=== PATIENT | male | born 1945 | race Caucasian/White ===

== ENCOUNTER → 2018-01-18 12:14 | Outpatient (CLI) | payer MEDICARE, SELFPAY ==
[2018-01-18 12:53] LABS: Bacteria 0 SEEN /hpf (None Seen); Mucous, Urine 0 SEEN /hpf (<or=2+); Red Blood Cells-Urine 0 SEEN /hpf (0-5); Squamous Epithelial Cells - UA 0 SEEN /hpf (0-5); White Blood Cells 0 SEEN /hpf (0-5)
[2018-01-18 12:59] LABS: Color, Urine Yellow (Yellow); Glucose, Dipstick Normal (Normal); Ketone-Dipstick Negative (Negative); Leukocyte Esterase-Dipstick Negative /ul (Negative); Nitrite-Dipstick Negative (Negative); Occult Blood-Urine Negative /ul (Negative); Protein-Dipstick Negative (Negative); Urine Bilirubin Dipstick Negative (Negative); Urine Clarity Clear (Clear); Urine Urobilinogen Normal (Normal)
[2018-01-18 13:19] LABS: AST(SGOT) 14 U/L (15-37); Alanine Aminotransfer ALT/SGPT 28 U/L (16-61); Albumin, Serum 3.5 g/dL (3.2-5.0); Alkaline Phosphatase 78 U/L (45-117); Anion Gap 7 (5-15); BUN 19 mg/dL (7-18); BUN/Creat Ratio 20.1 RATIO (10-20); Calcium,Total 8.7 mg/dL (8.5-10.1); Chloride 106 mmol/L (98-107); Cholesterol 168 mg/dL (200); Creatinine, Serum 0.95 mg/dL (0.70-1.30); EST Glomerular Filtration Rate 83 mL/min (>60); Est Glom Filt Rate - Afr Amer 101 mL/min (>60); Globulin 3.5 g/dL (2.2-4.2); Glucose 81 mg/dL (74-106); Hemoglobin A1c 5.9 % (4.2-6.3); High Density Lipoprotein 47 mg/dL; PSA,Total- Diagnostic 1.62 ng/mL (0.0-4.0); Sodium Level 142 mmol/L (136-145); Triglycerides 103 mg/dL; Very Low Density Lipoprotein 21 mg/dL (5-40)
--- OUTSIDE RECORDS SUMMARY | 2018-03-06 15:44 | XMS RPT_ITS ---
:1945 Author Organization OHIP Care Team Providers Name Role Phone OLLIE RAMIREZ Referring Unavailable EMA EARL (MADELINE) Attending Unavailable Ollie Ramirez Attending Unavailable Ollie Ramirez Referring Unavailable PROBLEMS PROBLEMS DATE TYPE CONDITION / CODE ATTENDING STATUS SOURCE 01/19/2018 Unknown E78.2 - Mixed Ollie Ramirez Active [facility] / [facility] E78.2(ICD-10) Hospital Repository 01/19/2018 Unknown Z79.899 - Other long Ollie Ramirez Active [facility] term (current) drug Community therapy / Hospital Z79.899(ICD-10) Repository 12/20/2017 Active Disorder of NA Active [place] [facility], Clinic Main unspecified / [place] N42.9(ICD-10) Repository 11/28/2016 Active Impaired fasting NA Active [place] glucose / Clinic Main R73.01(ICD-10) [place] Repository 07/21/2015 Active Mixed hyperlipidemia NA Active [facility] / E78.2(ICD-10) Clinic Main [place] Repository 01/18/2018 Active 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 Patient with hx of HTN Does not check his bp at home. Denies any headaches or vision changes Denies chest pain or significant shortness of breath. He is concerned with today's bp being a little higher Admits that he adds salt to everything and wants to work on this but doesn't see this change overnight. Last 4 Encounter BP Readings: Date: BP: 01/18/2018 132/68 11/25/2016 132/80 10/07/2016 142/76 08/24/2016 152/78 Past medical history, appointments, medications, allergies reviewed. Previous Medical History PAST MEDICAL HISTORY Diagnosis Date - Allergic rhinitis, cause unspecified 04/10/2008 - Benign neoplasm of colon - Erectile dysfunction 05/14/2014 - Hyperlipidemia 05/14/2014 - Hypertrophy of prostate without urinary obstruction and other lower urinary tract symptoms (LUTS) 01/20/2006 - Internal hemorrhoids without mention of complication - Tricuspid regurgitation 04/09/2011 Previous Surgical History PAST SURGICAL HISTORY Procedure Laterality Date - 2D ECHO (EXEP) 03/25/2014 EF=65%, Mild LVH and diastolic dysfunction. no valve abnormalities. - COLONOSCOPY W/BX 03/24/09 repeat 10 yrs - PROCEDURE 04/2007 right foot great toe nail removed - REMOVAL OF TONSILS,<12 Y/O Tonsillectomy - STRESS TEST 05/30/2014 NL - VASECTOMY 1998 Family History FAMILY HISTORY Problem Relation Age of Onset - Coronary Artery Disease Paternal Uncle 60's - Coronary Artery Disease Father 66 - Cancer Brother unsure of the type, passed from this. - Diabetes Maternal Uncle - Seizures Son Patient Allergies ALLERGIES No Known Allergies Current Medications Current Outpatient Prescriptions on File Prior to Visit: ASPIRIN 81 MG TAB Take one(1) tablet daily. fluticasone (FLONASE) 50 mcg/actuation nasal spray USE 2 SPRAYS IN EACH NOSTRIL ONCE DAILY. lisinopril (ZESTRIL, PRINIVIL) 5 mg tablet TAKE 1 TABLET BY MOUTH ONCE DAILY. sildenafil (VIAGRA) 50 mg tablet Take one hour before sex simvastatin (ZOCOR) 20 mg tablet TAKE 1 TABLET BY MOUTH ONCE DAILY. No current facility-administered medications on file prior to visit. Social History Social History Marital status: Spouse name: Years of education: 12+ Number of children: 2 Occupational History Occupation Employer Comment material specialis* [employer] Social History Main Topics Smoking status: Former Smoker Packs/day: 1.00 Years: 15.00 Types: Cigarettes Smokeless tobacco: Never Used Comment: quit in 1979 Alcohol use: Yes Comment: rarely Drug use: No Other Topics Concern Service Yes Blood Transfusions No Caffeine Concern No Occupational Exposure No Hobby Hazards No Sleep Concern No Stress Concern No Weight Concern Yes Special Diet No Back Care No Exercise Yes Bike Helmet No Seat Belt Yes Self-Exams No Review of Symptoms REVIEW OF SYSTEMS GENERAL: No weight loss, malaise or fevers NECK: Negative for lumps, goiter, pain and significant neck swelling RESPIRATORY: Negative for cough, hemoptysis, wheezing, COPD, dyspnea or shortness of breath CARDIOVASCULAR: Negative for chest pain, leg swelling, CHF or palpitations EXAM: BP 140/76 Pulse 64 Resp 12 Wt 93.9 kg (207 lb) BMI 30.13 kg/m? BP 132/68 Pulse 64 Resp 12 Wt 93.9 kg (207 lb) BMI 30.13 kg/m? General Appearance: Well appearing, alert, in no acute distress, well-hydrated, well nourished.. Neck: Supple, no adenopathy; thyroid symmetric, normal size, no bruits. Lungs: lungs clear to auscultation. No wheezing, rhonchi, rales. Heart: RRR + murmur Extremities: No deformities, edema, Peripheral Pulses: Normal. Health Maintenance List ANNUAL PCP TEAM CHRONIC DISEASE VISIT due on 1964 BP CONTROLLED (<130/80) due on 1964 DTAP,TDAP,TD(1 - Tdap) due on 1965 HEPATITIS C SCREENING due on 1990 FECAL OCCULT BLOOD due on 09/13/2017 DIABETES SCREEN due on 11/26/2019 LIPID SCREEN due on 09/06/2021 ADULT PREVNAR-13 Completed INFLUENZA Completed PNEUMOVAX AGE 65 AND OVER WITH 5YR LOOKBACK Completed Data reviewed NA ASSESSMENT/PLAN: 1. Hypertension, essential - ICD9: 401.9, ICD10: I10 (primary diagnosis) - fair control - patient is willing to try the 10mg daily for better HTN control. - He will also work on diet - He is to report any feelings of lightheadedness or fatigue. - Recommended regular aerobic exercise. - Recommend home blood pressure monitoring, to bring results in on next visit - Goal of BP <130/80 - LISINOPRIL 10 MG TABLET 2. Mixed hyperlipidemia - ICD9: 272.2, ICD10: E78.2 - to be determined upon return of lab results - Encouraged following a low carbohydrate, healthy oil intake diet. 3. Elevated fasting blood sugar - ICD9: 790.21, ICD10: R73.01 Await lab results 4. Screening for colon cancer - ICD9: V76.51, ICD10: Z12.11 Will check ifobt - FECAL OCCULT BLOOD TEST Keep follow up as scheduled. Return sooner as needed EMA EARL PA-C CNOV Observed: 01/18/2018 Status: COMPLETED Source: [place] 1:40 PM [facility] REPOSITORY Office Visit (FAMPWS) ROBIN COPELAND ([id number]) 1945 M Date Time Provider Department 01/18/18 1:40 PM LUCIANO EARL) FAMPWS During your visit today, we recorded the following information about you: Pulse Respiration Blood pressure Weight 64/minute 12/minute 132/68 93.9 kg EMA EARL PA-C 01/18/2018 2:15 PM Signed Chief Complaint Patient presents with: Recheck HPI Robin Polkd is a 72 year old male who presents here today for Chronic conditions and med refill.. Patient with hx of HTN Does not check his bp at home. Denies any headaches or vision changes Denies chest pain or significant shortness of breath. He is concerned with today's bp being a little higher Admits that he adds salt to everything and wants to work on this but doesn't see this change overnight. Last 4 Encounter BP Readings: Date: BP: 01/18/2018 132/68 11/25/2016 132/80 10/07/2016 142/76 08/24/2016 152/78 Past medical history, appointments, medications, allergies reviewed. Previous Medical History PAST MEDICAL HISTORY Diagnosis Date - Allergic rhinitis, cause unspecified 04/10/2008 - Benign neoplasm of colon - Erectile dysfunction 05/14/2014 - Hyperlipidemia 05/14/2014 - Hypertrophy of prostate without urinary obstruction and other lower urinary tract symptoms (LUTS) 01/20/2006 - Internal hemorrhoids without mention of complication - Tricuspid regurgitation 04/09/2011 Previous Surgical History PAST SURGICAL HISTORY Procedure Laterality Date - 2D ECHO (EXEP) 03/25/2014 EF=65%, Mild LVH and diastolic dysfunction. no valve abnormalities. - COLONOSCOPY W/BX 03/24/09 repeat 10 yrs - PROCEDURE 04/2007 right foot great toe nail removed - REMOVAL OF TONSILS,<12 Y/O Tonsillectomy - STRESS TEST 05/30/2014 NL - VASECTOMY 1997 Family History FAMILY HISTORY Problem Relation Age of Onset - Coronary Artery Disease Paternal Uncle 60's - Coronary Artery Disease Father 66 - Cancer Brother unsure of the type, passed from this. - Diabetes Maternal Uncle - Seizures Son Patient Allergies ALLERGIES No Known Allergies Current Medications Current Outpatient Prescriptions on File Prior to Visit: ASPIRIN 81 MG TAB Take one(1) tablet daily. fluticasone (FLONASE) 50 mcg/actuation nasal spray USE 2 SPRAYS IN EACH NOSTRIL ONCE DAILY. lisinopril (ZESTRIL, PRINIVIL) 5 mg tablet TAKE 1 TABLET BY MOUTH ONCE DAILY. sildenafil (VIAGRA) 50 mg tablet Take one hour before sex simvastatin (ZOCOR) 20 mg tablet TAKE 1 TABLET BY MOUTH ONCE DAILY. No current facility-administered medications on file prior to visit. Social History Social History Marital status: Spouse name: Years of education: 12+ Number of children: 2 Occupational History Occupation Employer Comment material specialis* [employer] Social History Main Topics Smoking status: Former Smoker Packs/day: 1.00 Years: 15.00 Types: Cigarettes Smokeless tobacco: Never Used Comment: quit in 1979 Alcohol use: Yes Comment: rarely Drug use: No Other Topics Concern Service Yes Blood Transfusions No Caffeine Concern No Occupational Exposure No Hobby Hazards No Sleep Concern No Stress Concern No Weight Concern Yes Special Diet No Back Care No Exercise Yes Bike Helmet No Seat Belt Yes Self-Exams No Review of Symptoms REVIEW OF SYSTEMS GENERAL: No weight loss, malaise or fevers NECK: Negative for lumps, goiter, pain and significant neck swelling RESPIRATORY: Negative for cough, hemoptysis, wheezing, COPD, dyspnea or shortness of breath CARDIOVASCULAR: Negative for chest pain, leg swelling, CHF or palpitations EXAM: BP 140/76 Pulse 64 Resp 12 Wt 93.9 kg (207 lb) BMI 30.13 kg/m? BP 132/68 Pulse 64 Resp 12 Wt 93.9 kg (207 lb) BMI 30.13 kg/m? General Appearance: Well appearing, alert, in no acute distress, well-hydrated, well nourished.. Neck: Supple, no adenopathy; thyroid symmetric, normal size, no bruits. Lungs: lungs clear to auscultation. No wheezing, rhonchi, rales. Heart: RRR + murmur Extremities: No deformities, edema, Peripheral Pulses: Normal. Health Maintenance List ANNUAL PCP TEAM CHRONIC DISEASE VISIT due on 1964 BP CONTROLLED (<130/80) due on 1964 DTAP,TDAP,TD(1 - Tdap) due on 1965 HEPATITIS C SCREENING due on 1990 FECAL OCCULT BLOOD due on 09/13/2017 DIABETES SCREEN due on 11/26/2019 LIPID SCREEN due on 09/06/2021 ADULT PREVNAR-13 Completed INFLUENZA Completed PNEUMOVAX AGE 65 AND OVER WITH 5YR LOOKBACK Completed Data reviewed NA ASSESSMENT/PLAN: 1. Hypertension, essential - ICD9: 401.9, ICD10: I10 (primary diagnosis) - fair control - patient is willing to try the 10mg daily for better HTN control. - He will also work on diet - He is to report any feelings of lightheadedness or fatigue. - Recommended regular aerobic exercise. - Recommend home blood pressure monitoring, to bring results in on next visit - Goal of BP <130/80 - LISINOPRIL 10 MG TABLET 2. Mixed hyperlipidemia - ICD9: 272.2, ICD10: E78.2 - to be determined upon return of lab results - Encouraged following a low carbohydrate, healthy oil intake diet. 3. Elevated fasting blood sugar - ICD9: 790.21, ICD10: R73.01 Await lab results 4. Screening for colon cancer - ICD9: V76.51, ICD10: Z12.11 Will check ifobt - FECAL OCCULT BLOOD TEST Keep follow up as scheduled. Return sooner as needed NADER SIDDIQUI PA-C 01/18/2018 2:09 PM Signed Keep follow up as scheduled. Referring Provider: SELF [[id number]] Allergies As of Date: 01/18/2018 (No Known Allergies) Date Reviewed: 01/18/2018 Reviewed by: Selena Loyola Ma - Fully Assessed Reason for Visit: Recheck [92] Primary Visit Diagnosis:Hypertension, essential [I10] Other Visit Diagnoses:Mixed hyperlipidemia [E78.2] Elevated fasting blood sugar [R73.01] Screening for colon cancer [Z12.11] Order(s):lisinopril (ZESTRIL, PRINIVIL) 10 mg tabletTake 1 tablet by mouth once daily.Disp: 30 tabletRfl: 5 FECAL OCCULT BLOOD TEST [SQIFOBT] Order #: [id number] FUTURE Prescriptions as of 01/18/2018 Sig: ASPIRIN 81 MG TABLET Take one(1) tablet daily. FLUTICASONE 50 MCG/ACTUATION * USE 2 SPRAYS IN EACH NOSTRIL * LISINOPRIL 10 MG TABLET Take 1 tablet by mouth once d* SILDENAFIL 50 MG TABLET Take one hour before sex SIMVASTATIN 20 MG TABLET TAKE 1 TABLET BY MOUTH ONCE D* Problem List As Of Date 01/18/2018 Noted Resolved BPH (benign prostatic hypertrophy) with urinary*INVALID FOR* Onychia and Paronychia of Toe [L03.039] INVALID FOR*12/10/2008 Allergic rhinitis, cause unspecified [J30.9] INVALID FOR* Special Screening for Malignant Neoplasms, Lamar*INVALID FOR* Benign neoplasm of colon [D12.6] INVALID FOR* Internal hemorrhoids without mention of complic*INVALID FOR* Tricuspid regurgitation [I07.1] INVALID FOR* Erectile dysfunction [N52.9] INVALID FOR* Screening for prostate cancer [Z12.5] INVALID FOR* Colon cancer screening [Z12.11] INVALID FOR* Dystrophic nail [L60.3] INVALID FOR* More... Toe pain, right [M79.674] INVALID FOR* More... Well adult exam [Z00.00] INVALID FOR* More... Mixed hyperlipidemia [E78.2] INVALID FOR* Elevated fasting blood sugar [R73.01] INVALID FOR* Prostate disorder [N42.9] INVALID FOR* Other instructions from your clinician: Keep follow up as scheduled. Prescriptions ordered this encounter Disp Refills Start End LISINOPRIL 10 MG TABLET 30 t* 5 01/18/2018 Route: ORAL Sig: Take 1 tablet by mouth once daily. Medications Discontinued During This Encounter lisinopril (ZESTRIL, PRINIVIL) 5 mg * 90 t* 1 07/15/2017 01/18/2018 Route: ORAL Sig: TAKE 1 TABLET BY MOUTH ONCE DAILY. Disc: Reason for discontinue is not on file. Disposition: Return if symptoms worsen or fail to improve and as scheduled. Follow-up and Disposition History Recorded Encounter Status:Closed by EMA LO on 01/18/18 URINALYSIS WITH Collected: 01/18/2018 Status: F Source: [facility] 11:11 AM CLINIC MAIN CAMPUS REPOSITORY TYPE CODE TESTS RESULT OUT OF RANGE REFERENCE UNITS LAB UCOL Yellow Abnormal Test Alert Color sent to [facility]. Result Comment: Account Credited [facility] Clear Abnormal Test Alert Clarity sent to [facility]. Result Comment: Account Credited HIDE LAB UGLUC Negative mg/dL Test Abnormal Glucose, Urine sent to [facility]. Result Comment: Account Credited HIDE LAB UBIL Negative Abnormal Test Alert Bilirubin, Urine sent to [facility]. Result Comment: Account Credited HIDE LAB UKET Negative Abnormal Test Alert Ketones, Urine sent to [facility]. Result Comment: Account Credited HIDE LAB USPG 1.005-1.030 Test Specific sent to [facility]. Result Comment: Account Credited HIDE LAB UHGB Negative Hemoglobin/Blood,Ur Abnormal Test sent to [facility]. Result Comment: Account Credited HIDE LAB UPH 4.5-8.0 Test sent to [facility]. Result Comment: Account Credited HIDE LAB UPROT Negative mg/dL Test Abnormal Protein, Urine sent to [facility]. Result Comment: Account Credited HIDE LAB UUROB Normal Abnormal Urobilinogen Test Alert sent to [facility]. Result Comment: Account Credited HIDE LAB UNITR Negative Abnormal Test Alert Nitrites sent to [facility]. Result Comment: Account Credited HIDE LAB ULKEST Negative Abnormal Test Alert Leukest sent to [facility]. Result Comment: Account Credited HIDE LAB UCOM Comments SEE COMMENT Result Comment: Test sent to [facility]. Account Credited HIDE LAB UMCOM Urine SEE Foreign Comment COMMENT Result Comment: Test sent to [facility]. Account Credited HIDE LAB RECHEK Recheck Test sent to [facility]. Result Comment: Account Credited [facility] COMP METABOLIC PANEL Collected: 01/18/2018 Status: F Source: [place] 11:10 AM CLINIC MAIN CAMPUS REPOSITORY TYPE CODE TESTS RESULT OUT OF REFERENCE UNITS RANGE LAB TP 6.3-8.0 g/dL Test sent to [facility]. Result Comment: Account Credited [facility]IDE LAB ALB 3.9-4.9 g/dL Test Albumin sent to [facility]. Result Comment: Account Credited [facility]IDE LAB CA 8.5-10.2 mg/dL Test Calcium, Total sent to [facility]. Result Comment: Account Credited [facility]IDE LAB TBIL 0.2-1.3 mg/dL Bilirubin, Test Total sent to [facility]. Result Comment: Account Credited HIDE LAB ALKP 38-113 U/L Alkaline Test Phosphatase sent to [facility]. Result Comment: Account Credited HIDE LAB AST 14-40 U/L Test sent AST to [facility]. Result Comment: Account Credited HIDE LAB GLU 74-99 mg/dL Test sent Glucose to [facility]. Result Comment: Account Credited [facility] LAB BUN 9-24 mg/dL Test sent BUN to [facility]. Result Comment: Account Credited [facility]IDE LAB CRET 0.73-1.22 mg/dL Creatinine Test sent to [facility]. Result Comment: Account Credited HIDE LAB NA 136-144 mmol/L Test Sodium sent to [facility]. Result Comment: Account Credited HIDE LAB K 3.7-5.1 mmol/L Test Potassium sent to [facility]. Result Comment: Account Credited HIDE LAB CL 97-105 mmol/L Test Chloride sent to [facility]. Result Comment: Account Credited HIDE LAB CO2 22-30 mmol/L Test sent CO2 to [facility]. Result Comment: Account Credited HIDE LAB AGAP 9-18 mmol/L Test sent Anion Gap to [facility]. Result Comment: Account Credited HIDE LAB ALT 10-54 U/L Test sent ALT to [facility]. Result Comment: Account Credited HIDE LAB GFRAA eGFR- Amer. Test sent to [facility]. Result Comment: Account Credited HIDE LAB GFRNAA . eGFR-All Test sent Other Races to [facility]. Result Comment: Account Credited [facility] GFRPED eGFR-Ped. Test sent Factor to [facility]. Result Comment: Account Credited [facility] HEMOGLOBIN A1C Collected: 01/18/2018 Status: F Source: [place] 11:10 AM [facility] REPOSITORY TYPE CODE TESTS RESULT OUT OF REFERENCE UNITS RANGE LAB HGBA1C 4.0-6.0 % Test Hemoglobin A1c sent to [facility]. Result Comment: Account Credited [facility] HBA0 mg/dL Est. Test sent Average Glucose to [facility]. Result Comment: Account Credited [facility] LIPID PANEL, BASIC Collected: 01/18/2018 Status: F Source: [place] 11:10 AM [facility] REPOSITORY TYPE CODE TESTS RESULT OUT OF REFERENCE UNITS RANGE LAB CHOL <200 mg/dL Cholesterol Test sent to [facility]. Result Comment: Account Credited [facility] LAB TRIGLY <150 mg/dL Triglyceride Test sent to [facility]. Result Comment: Account Credited [facility] LAB HDL >39 mg/dL HDL-Cholesterol Test sent to [facility]. Result Comment: Account Credited [facility] LAB LDL <100 mg/dL LDL-Cholesterol Test sent to [facility]. Result Comment: Account Credited [facility] LAB NONHDL 90-159 mg/dL Non HDL Test Cholesterol sent to [facility]. Result Comment: Account Credited [facility] LAB FT hrs Fasting Time 14 LAB VLDL <30 mg/dL VLDL Cholesterol Test sent to [facility]. Result Comment: Account Credited [facility] LAB TCHDL <5.10 Test sent TC:HDL Ratio to [facility]. Result Comment: Account Credited [facility] LAB LDLHDL <2.54 Test sent LDL:HDL Ratio to [facility]. Result Comment: Account Credited [facility] PSA, DIAGNOSTIC Collected: 01/18/2018 Status: F Source: [place] 11:10 AM [facility] REPOSITORY TYPE CODE TESTS RESULT OUT OF REFERENCE UNITS RANGE LAB PSA 0.00-2.59 ng/mL PSA, Test Diagnostic sent to [facility]. Result Comment: Account Credited [facility] URINALYSIS, COMPLETE Collected: 01/18/2018 Status: F Source: [place] 11:08 AM [facility] REPOSITORY Order Comment: How was Urine Obtained? CLEAN CATCH TYPE CODE TESTS RESULT OUT OF RANGE REFERENCE UNITS LAB L400.3000 Yellow COLOR Normal Yellow LAB L400.3050 Clear Normal CLARITY Clear LAB L400.3200 Normal mg/dl Normal GLUCOSE, UR Normal LAB L400.3300 Negative mg/dL Normal BILIRUBIN URINE Negative LAB L400.3400 Negative mg/dl Normal KETONE UR Negative LAB L400.3465 1.002-1.030 Normal SP.GR. DIPSTX 1.010 LAB L400.3550 5.0 - 8.0 pH UR Normal 6.0 LAB L400.3600 Negative mg/dl PROT Normal DIPSTX Negative LAB L400.3700 Normal mg/dl Normal UROBILI Normal LAB L400.3750 Negative Normal NITRITE UR Negative LAB L400.3780 Negative /ul Normal OCCULT BLOOD-UR Negative LAB L400.3800 Negative /ul LEUK Normal ESTERASE Negative LAB L400.4050 0-5 /hpf WBC 0 Normal SEEN LAB L400.4100 0-5 /hpf 0 Normal RBC-UA SEEN LAB L400.4150 0-5 /hpf SQUAM 0 Normal EPI SEEN LAB L400.4300 None Seen /hpf 0 Normal BACTERIA SEEN LAB L400.4350 <or=2+ /hpf 0 Normal MUCUS, URINE SEEN Performed By: #### L400.0001 #### [facility] [address] [place], [place], [id number] COMPREHENSIVE METABOLIC Collected: 01/18/2018 Status: F Source: [facility] 11:08 AM [facility] REPOSITORY TYPE CODE TESTS RESULT OUT OF RANGE REFERENCE UNITS LAB L501.0100 74-106 mg/dL Normal GLU 81 Result Comment: Please note revised GLUCOSE reference range effective 2017. LAB L501.1000 7-18 mg/dL High BUN 19 LAB L501.1100 0.70-1.30 mg/dL Normal CREAT,SERUM 0.95 Result Comment: The validity of the calculated GFR AND GFRAA in patients over 70 years has not been determined. Clinical correlation is essential. LAB L501.1110 >60 mL/min Normal EST GFR 83 Result Comment: Non- GFR Calc LAB L501.1115 >60 mL/min Normal EST GFR - AA 101 Result Comment: GFR Calc LAB L501.1300 10-20 RATIO High BUN/CRE 20.1 LAB L501.1500 6.4-8.2 g/dL T Normal PROT 7.0 LAB L501.1800 3.2-5.0 g/dL Normal ALB 3.5 LAB L501.1950 2.2-4.2 g/dL Normal GLOB 3.5 LAB L501.2000 0.9-2.4 RATIO Normal A/G 1.0 LAB L501.2200 8.5-10.1 mg/dL CA Normal 8.7 LAB L501.4100 15-37 U/L Low AST 14 LAB L501.4305 45-117 U/L Normal ALK P 78 LAB L501.4405 16-61 U/L Normal ALT 28 LAB L501.4600 0.20-1.00 mg/dL T Normal BILI 0.50 LAB L501.5300 136-145 mmol/L NA Normal 142 LAB L501.5600 3.5-5.1 mmol/L K Normal 4.0 LAB L501.5900 98-107 mmol/L CL Normal 106 LAB L501.6100 21.0-32.0 mmol/L Normal CO2 29.0 LAB L501.6200 5-15 Normal GAP 7 Performed By: #### L500.4050, L500.4100, L501.9940 #### [facility] [address] [place], [place], [address] LIPID PROFILE Collected: 01/18/2018 Status: F Source: [place] 11:08 AM [facility] REPOSITORY TYPE CODE TESTS RESULT OUT OF RANGE REFERENCE UNITS LAB L501.4900 200 mg/dL Normal CHOL 168 Result Comment: <200 mg/dL Desirable 200-240 mg/dL Borderline >240 mg/dL High Risk LAB L501.5000 mg/dL Normal TRIG 103 Result Comment: The drugs N-Acetylcysteine and Metamizole may falsely depress this assay. Serum Triglycerides Reference Interval Normal <150 mg/dL Borderline high 150 - 199 mg/dL High 200 - 499 mg/dL Very High > or = 500 mg/dL LAB L501.6400 mg/dL Normal HDL 47 Result Comment: The drugs N-Acetylcysteine and Metamizole may falsely depress this assay. Reference Range HDL <40 mg/dL Low HDL Cholesterol HDL >or= 60 mg/dL High HDL Cholesterol LAB L501.6500 0-130 mg/dL Normal LDL 100 LAB L501.6600 5-40 mg/dL Normal VLDL 21 Performed By: #### L500.4050, L500.4100, L501.9940 #### [facility] [address] [place], [address] PSA,TOTAL- DIAGNOSTIC Collected: 01/18/2018 Status: F Source: [place] 11:08 AM [facility] REPOSITORY TYPE CODE TESTS RESULT OUT OF RANGE REFERENCE UNITS LAB L501.9940 0.0-4.0 ng/mL PSA, Normal DIAGNOSTIC 1.62 Result Comment: This test was performed using the TPSA assay method for the check24 chemistry system. Values obtained with different assay methods cannot be used interchangably. When changing PSA assays in the course of monitoring a patient, additional sequential testing should be carried out to confirm baseline values. Performed By: #### L500.4050, L500.4100, L501.9940 #### [facility] [address] [place], [address] HEMOGLOBIN A1C Collected: 01/18/2018 Status: F Source: [place] 11:08 AM [facility] REPOSITORY TYPE CODE TESTS RESULT OUT OF RANGE REFERENCE UNITS LAB L501.9985 4.2-6.3 % Normal HGB A1C 5.9 Performed By: #### L501.9985 #### [facility] [address] [place], [address] CNPTOUTREACH Observed: 12/20/2017 Status: COMPLETED Source: [place] 12:00 AM [facility] REPOSITORY Patient Outreach (FAMPST) ROBIN COPELAND ([id number]) 1945 M Date Time Provider Department 12/20/17 OLLIE RAMIREZ FAMPST During your visit today, we recorded the following information about you: Allergies As of Date: 12/20/2017 (No Known Allergies) Date Reviewed: 11/25/2016 Reviewed by: Vivi Fry LPN - Fully Assessed Primary Visit Diagnosis:Mixed hyperlipidemia [E78.2] Other Visit Diagnoses:Medication management [Z79.899] Elevated fasting blood sugar [R73.01] Prostate disorder [N42.9] Order(s):HGB A1C [HAELO3V] Order #: [id number] FUTURE LIPID PANEL BASIC [SQLIPB] Order #: [id number] FUTURE COMP METABOLIC PANEL [SQCMP] Order #: [id number] FUTURE PSA/PROSTSPECAG DIAG [SQPSA] Order #: [id number] FUTURE URINALYSIS WITH MICROSCOPIC [SQUAWMIC] Order #: [id number] FUTURE Prescriptions as of 12/20/2017 Sig: ASPIRIN 81 MG TABLET Take one(1) tablet daily. SILDENAFIL 50 MG TABLET Take one hour before sex SIMVASTATIN 20 MG TABLET TAKE 1 TABLET BY MOUTH ONCE D* X FLUTICASONE 50 MCG/ACTUATION * USE 2 SPRAYS IN EACH NOSTRIL * X LISINOPRIL 5 MG TABLET TAKE 1 TABLET BY MOUTH ONCE D* Problem List As Of Date 12/20/2017 Noted Resolved BPH (benign prostatic hypertrophy) with urinary*INVALID FOR* Onychia and Paronychia of Toe [L03.039] INVALID FOR*12/10/2008 Allergic rhinitis, cause unspecified [J30.9] INVALID FOR* Special Screening for Malignant Neoplasms, Lamar*INVALID FOR* Benign neoplasm of colon [D12.6] INVALID FOR* Internal hemorrhoids without mention of complic*INVALID FOR* Tricuspid regurgitation [I07.1] INVALID FOR* Erectile dysfunction [N52.9] INVALID FOR* Screening for prostate cancer [Z12.5] INVALID FOR* Colon cancer screening [Z12.11] INVALID FOR* Dystrophic nail [L60.3] INVALID FOR* More... Toe pain, right [M79.674] INVALID FOR* More... Well adult exam [Z00.00] INVALID FOR* More... Mixed hyperlipidemia [E78.2] INVALID FOR* Elevated fasting blood sugar [R73.01] INVALID FOR* Prostate disorder [N42.9] INVALID FOR* Encounter Status:Closed by DALY SANDSUSER on 01/20/18 CNCO Observed: 06/21/2017 Status: COMPLETED Source: [place] 12:00 AM [facility] REPOSITORY Letter Text [id number] [facility] [place] [address] [phone] 06/21/2017 Robin Godinez Saroj [address] [facility] [address] Dear Mr. Copeland: Due to a change in the provider's schedule, it has been necessary to reschedule your appointment. Enclosed please find a new appointment reminder that will replace the one previously sent to you. If this appointment is not convenient for you, please contact our office at [phone]. Thank you for choosing the [facility] as your Healthcare Provider. Sincerely, Appointment Office Department of Family Medicine Enclosure ALLERGIES ALLERGIES DATE TYPE / CODE NAME / CODE REACTION SEVERITY SOURCE Drug NO KNOWN [facility] Class/79182 ALLERGIES Main [place] 1003(SNOMED Repository CT) ENCOUNTERS ENCOUNTERS ADMIT/DISCHARGE ACCOUNT ADMITTING ENCOUNTER LOCATION SOURCE NUMBER CLASS 01/18/2018/01/20/20 [id number] Ambulatory [address] Repository 01/18/2018 [id number] [facility] ing:[facility] Repository 01/18/2018/01/19/20 [id number] Ambulatory [address] Repository PAYERS PAYERS ENCOUNTER GUARANTOR PAYER SUBSCRIBER SOURCE 01/18/2018 ROBIN Godinez Primary ROBIN Eldridge [id number] Insurance:[employer] KIDDDOB: [place] MEDICAREPolicy [id number] [address]Rje: 419) Number: Repository [phone] () [id number] Date:[id number] [address] [place] [id number]: 01/18/2018 Secondary NOT GIVENUNK Welcome Insurance:SELF PAY [facility] Number: Effective Repository Date:2018-01-18
== END ==
PROVIDERS: Referring Provider Family Medicine; Visit Provider Family Medicine
DX: E78.2 Mixed hyperlipidemia (principal); N42.9 Disorder of prostate, unspecified; R73.01 Impaired fasting glucose; Z79.899 Other long term (current) drug therapy
CPT/HCPCS: 80053; 80061; 81001; 83036; 84153

== ENCOUNTER → 2018-06-24 12:19 | Outpatient (CLI) | payer MEDICARE, SELFPAY ==
[2018-06-24 12:59] LABS: Hematocrit 40.4 % (40-54); Hemoglobin 13.9 g/dl (13.0-16.5); Mean Corp Hgb Conc 34.4 g/gl (32-36); Mean Corpuscular Hgb 28.8 pg (27.0-32.0); Mean Corpuscular Volume 83.6 fL (80-94); Mean Platelet Vol. 10.1 fl (6.2-12.0); Platelet Count 202 K/mm3 (150-450); RBC Distribution Width CV 13.9 % (11.6-14.6); RBC Distribution Width SD 41.7 fl (35.1-43.9); Red Blood Count 4.83 M/mm3 (4.6-6.2); White Blood Count 5.4 K/mm3 (4.4-11.0)
[2018-06-24 13:01] LABS: Scan Indicated on CBC? Y/N NO
[2018-06-24 13:19] LABS: Hemoglobin A1c 5.6 % (4.2-6.3)
== END ==
PROVIDERS: Visit Provider Family Medicine
DX: Z79.899 Other long term (current) drug therapy (principal); Z12.11 Encounter for screening for malignant neoplasm of colon
CPT/HCPCS: 82274; 83036; 85027

== ENCOUNTER → 2021-01-21 15:31 | Outpatient (CLI) | payer MEDICARE, SELFPAY ==
[2021-01-21 16:40] LABS: Cholesterol 184 mg/dL (200); High Density Lipoprotein 54 mg/dL; PSA,Total - Annual Screen 1.87 ng/mL (0.00-4.00); Triglycerides 106 mg/dL; Very Low Density Lipoprotein 21 mg/dL (5-40)
[2021-01-21 17:28] LABS: Hemoglobin A1c 5.8 % (3.8-5.6)
== END ==
PROVIDERS: Referring Provider Family Medicine; Visit Provider Family Medicine
DX: N42.9 Disorder of prostate, unspecified (principal); I10 Essential (primary) hypertension; E78.2 Mixed hyperlipidemia; R73.01 Impaired fasting glucose; Z12.5 Encounter for screening for malignant neoplasm of prostate
CPT/HCPCS: 80061; 83036; 84153; G0103

== ENCOUNTER 2021-12-29 10:05 | Emergency (ER) | payer MEDICARE, SELFPAY ==
[2021-12-29 10:06] VITALS: BP 158/78; PULSE 75; RESP 16; TEMP 36.6; O2SAT 100; BMI 30.1
--- NOTE | 2021-12-29 10:39 | EKG12_ITS ---
Test Reason : EKG CHANGES Blood Pressure : / mmHG Vent. Rate : 065 BPM Atrial Rate : 065 BPM P-R Int : 230 ms QRS Dur : 148 ms QT Int : 440 ms P-R-T Axes : 035 -29 111 degrees QTc Int : 457 ms Sinus rhythm with 1st degree A-V block Left bundle branch block Abnormal ECG Confirmed by BRANDAN BISHOP, ELAYNE ([id number]), editor producer NICOLE REYNOLDS ([id number]) on 12/30/2021 9:15:00 AM Referred By: Confirmed By:ELAYNE GIPSON MD
--- NOTE | 2021-12-29 10:39 | EX.ED.UPPERE ---
HPI History of Present Illness Chief Complaint: Upper Extremity Injury Informant: patient and PCP Narrative Narrative: 76-year-old male with a history of hypertension and aortic stenosis is presenting to the emergency room with left arm pain after being referred here by his physician assistant gm of content & delivery at his primary care physician's office. Reportedly he has had left arm aching from the shoulder to the hand for the past week he denies any known trauma. It has not been constant but intermittent. Is worse with certain movements. No numbness or weakness. While at his PCPs office he had an EKG that showed a left bundle branch block which is new because his last EKG was in May 2014. He also has a history of aortic stenosis but does not know when his last echocardiogram was but states it was probably at least 5 years ago. He denies any chest pain or shortness of breath. He denies any weight gain or swelling. No change in exercise tolerance and states that he has been able to walk his dog normally without difficulty. [facility] Medical History (Updated 12/29/21 @ 11:[address] Alan Galeano DO) Aortic stenosis GERD (gastroesophageal reflux disease) Hypertension Home Medications famotidine 40 mg tablet 40 mg PO DAILY 12/29/21 [History Last Taken Unknown] hydrochlorothiazide 12.5 mg tablet 12.5 mg PO DAILY 12/29/21 [History Last Taken Unknown] lisinopril 20 mg tablet 20 mg PO DAILY 12/29/21 [History Last Taken Unknown] simvastatin 40 mg tablet 40 mg PO DAILY 12/29/21 [History Last Taken Unknown] Allergy/AdvReac Type Severity Reaction Status Date / Time No Known Allergies Allergy Verified 12/29/21 10:08 Social History (Updated 12/29/21 @ 10:[address] Alan Galeano DO) Smoking Status: Former smoker substance use type: does not use ROS ROS ED Constitutional Constitutional ED: Denies chills, fever(s) or weight loss Eyes Eyes: Denies change in vision or diplopia ENT ENT ED: Denies ear pain, rhinorrhea or sore throat Cardiovascular Cardiovascular: Denies chest pain, orthopnea, palpitations or racing heartbeat Respiratory/Chest Respiratory/Chest: Denies cough, dyspnea or orthopnea Gastrointestinal Gastrointestinal: Denies abdominal pain, diarrhea, nausea or vomiting Genitourinary Genitourinary ED: Denies dysuria, hematuria or urinary frequency Musculoskeletal Musculoskeletal: Reports other Details: See history of present illness ; Denies arthralgias or myalgias Integumentary Denies abscess or rash Neurologic Neurologic: Denies headache(s) or weakness Psychiatric Psychiatric: Denies anxiety, depression, suicidal ideation or suicidal thoughts Endocrine Endocrinology: Denies polydipsia, polyphagia or polyuria Allergic/Immunologic Allergic/Immunologic ED: Denies mouth swelling, tongue swelling or urticaria EXAM Physical Exam Const Vital Signs: 12/29/21 10:06 Temperature 97.8 F Temperature Source Temporal Pulse Rate 75 Respiratory Rate 16 Blood Pressure 158/78 H Blood Pressure Mean 104 Pulse Ox 100 Oxygen Delivery Method Room Air Positive well nourished and well developed General Appearance ED: well developed HEENT Reports normocephalic, head/scalp atraumatic and moist mucous membranes Eyes PERRL and EOMs intact bilaterally Neck full ROM, no lymphadenopathy, supple and no JVD Resp normal respiratory effort and clear to auscultation bilaterally Cardio regular rate and regular rhythm Cardio Narrative: Holosystolic murmur GI normal to inspection, nondistended, normoactive bowel sounds and non-tender Palpation: soft Back/Spine no CVA tenderness and normal ROM Extremity full ROM Extremity Narrative: Tenderness to palpation of the subacromial space. General Extremety ED: Negative for edema General Extremity: Negative for edema Neuro oriented x3 and CN's II-XII intact bilaterally Sensorium / Orientation: alert Motor Exam: strength 5/5 throughout Psych mental status grossly normal Mood & Affect: Negative for depressed or tearful Skin no rashes or lesions noted and no wounds MDM MDM MDM Narrative Medical decision making narrative: My interpretation of the chest x-ray is no acute process. Basic blood work is negative including troponin. EKG is sinus with first-degree AV block and left bundle branch block. At this point I think the patient's pain is musculoskeletal. Left bundle branch block can be due to many factors but I do not believe this is related to ACS at this time. Patient is to discuss follow-up echocardiogram with his doctor when he sees them next month for follow-up. Lab Data Attestation: I reviewed the patient's lab results. Discharge Plan Triage Chief Complaint: Upper Extremity Injury ED Provider: Alan Galeano Dx/Rx/DC Orders Clinical Impression: Aortic stenosis, Arm pain, left, Complete left bundle branch block Prescriptions: No Action lisinopril 20 mg tablet 20 mg PO DAILY Label Comments: TAKE 1 TABLET BY MOUTH EVERY DAY famotidine 40 mg tablet 40 mg PO DAILY Label Comments: TAKE 1 TABLET BY MOUTH EVERY DAY AT BEDTIME NEEDED simvastatin 40 mg tablet 40 mg PO DAILY Label Comments: TAKE 1 TABLET BY MOUTH EVERYDAY AT BEDTIME hydrochlorothiazide 12.5 mg tablet 12.5 mg PO DAILY Label Comments: TAKE 1 TABLET BY MOUTH EVERY DAY Primary Care Provider: Greg Lo Referrals: Greg Lo MD [Primary Care Provider] - Keep Victor Manuel appointment Activity Restrictions/Additional Instructions: Please discuss with your doctor an echocardiogram and how often you should have that checked. Disposition Disposition: Home, Self Care
[2021-12-29 10:53] VITALS: PULSE 65; RESP 15; O2SAT 97
[2021-12-29 11:12] LABS: Absolute Lymphocyte Count 2.66 X10^3/uL (0.83-4.51); Absolute Neutrophil Count 3.1 X10^3/uL (2.0-7.7); Basophil# 0.04 X10^3/uL; Basophil% 0.6 % (0-1); Eosinophils% 2.8 % (0-5); Hematocrit 43.3 % (40-54); Hemoglobin 14.4 g/dL (13.0-16.5); Lymphocyte # 2.66 X10^3/ul (0.83-4.51); Lymphocyte % 37.9 % (19-41); Mean Corp Hgb Conc 33.3 g/dL (32-36); Mean Corpuscular Hgb 28.5 pg (27.0-32.0); Mean Corpuscular Volume 85.7 fL (80-94); Mean Platelet Vol. 9.5 fl (6.2-12.0); Monocyte# 1.01 X10^3/uL; Monocyte% 14.4 % (0-10); NRBC Flagged by Analyzer 0 % (0-5); Neutrophil # 3.07 X10^3/uL (2.7-7.7); Neutrophil % 43.7 % (47-70); Platelet Count 233 K/mm3 (150-450); RBC Distribution Width CV 13.3 % (11.6-14.6); Red Blood Count 5.05 M/mm3 (4.6-6.2)
[2021-12-29 11:29] LABS: Anion Gap 3 (5-15); BUN 20 mg/dL (7-18); Calcium,Total 9.6 mg/dL (8.5-10.1); Chloride 103 mmol/L (98-107); Creatinine, Serum 1.05 mg/dL (0.70-1.30); EST Glomerular Filtration Rate 73 mL/min (>60); Est Glom Filt Rate - Afr Amer 89 mL/min (>60); Estimated Creatinine Clearance 62.76 ml/min; Glucose 124 mg/dL (74-106); Potassium 4.1 mmol/L (3.5-5.1); Sodium Level 136 mmol/L (136-145); Troponin-I HS 16 pg/mL (3.0-78.0)
[2021-12-29 11:37] VITALS: RESP 18
--- NOTE | 2021-12-29 11:59 | RAD_ITS ---
EXAM: XR CHEST, 1 VIEW CLINICAL INDICATION: hypertension TECHNIQUE: Frontal view of the chest. This report was created using [employer] report generation technology. COMPARISON: None. FINDINGS: LUNGS AND PLEURAL SPACES: Normal. No consolidation or edema. No pneumothorax. No effusion. HEART: Normal heart size. MEDIASTINUM: No mediastinal or hilar mass. BONES/JOINTS: No acute abnormality. SOFT TISSUES: Normal. RAD/Chest 1 View (Portable) IMPRESSION: No acute cardiopulmonary disease. Electronically Signed: Jaspal Johnson MD at 11:15 EST ,
[2021-12-29 12:06] VITALS: BP 145/77
== END 2021-12-29 12:12 | disposition home or self-care (01) ==
PROVIDERS: Emergency Provider Emergency Medicine; PCP Family Medicine; Visit Provider Emergency Medicine
DX: I35.0 Nonrheumatic aortic (valve) stenosis (principal); I44.7 Left bundle-branch block, unspecified; M79.602 Pain in left arm; I10 Essential (primary) hypertension; Z87.891 Personal history of nicotine dependence; Z79.899 Other long term (current) drug therapy
CPT/HCPCS: 71045; 80048; 84484; 85025; 93005; 99284; A4216